=== PATIENT | female | born 1995 | race Caucasian/White ===

== ENCOUNTER 2019-09-14 03:36 | Emergency (ER) | payer BC, MEDICAID ==
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
[2019-09-14] MEDS ORDERED: Dexamethasone 10 MG/ML SDV IM ONE (05:40)
[2019-09-14] MEDS ORDERED: Dexamethasone 4 MG/ML SDV ONE (05:42)
--- NOTE | 2019-09-14 09:03 | CT ---
[id number] CT/CT Facial Bones WO IV EXAM: FACIAL BONE CT WITHOUT CONTRAST INDICATION: Trauma. COMPARISON: None. DISCUSSION: No facial bone fracture or suspicious osseous lesion identified. Air-fluid level left maxillary sinus. Focal mucosal thickening, mucous or mucosal retention cyst right sphenoid sinus. Minor right maxillary sinus mucosal thickening. Multiple dental caries. Scattered missing teeth are unerupted teeth are seen in the bilateral axilla. Scattered soft tissue swelling including along the mandible bilaterally, in the right cheek and in the preseptal left periorbital soft tissues. IMPRESSION: 1. Facial soft tissue swelling. No acute facial bone fracture is identified. 2. Left maxillary sinusitis. Vijay You MD 09/14/19 0902 Thank you for allowing us to participate in the care of your patient.
--- NOTE | 2019-09-14 09:10 | CT ---
[id number] CT/CT Head WO IV EXAM: NONCONTRAST HEAD CT INDICATION: TRAUMA COMPARISON: None. DISCUSSION: Soft tissue swelling anterior left scalp. The ventricles and sulci are normal in size and configuration. The shirley and white matter are normal in attenuation. No mass effect or midline shift. No acute hemorrhage or extra-axial fluid collection. No acute territorial infarct is identified. An air-fluid level within the left maxillary sinus could relate to acute sinusitis. Left orbital soft tissue swelling. IMPRESSION: 1. No evidence of acute intracranial trauma. Vijay You MD 09/14/19 0909 Thank you for allowing us to participate in the care of your patient.
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
[2019-09-14 09:39] VITALS: BP 122/50; PULSE 91
== END 2019-09-14 06:50 | disposition home or self-care (01) ==
LOC: KA.ED 03:36
DX: S13.9XXA Sprain of joints and ligaments of unspecified parts of neck, initial encounter (principal); S10.93XA Contusion of unspecified part of neck, initial encounter; S09.90XA Unspecified injury of head, initial encounter; F41.9 Anxiety disorder, unspecified; Z79.899 Other long term (current) drug therapy; Y04.0XXA Assault by unarmed brawl or fight, initial encounter
CPT/HCPCS: 70450; 70486; 72125; 99285-25; J1100